=== PATIENT | male | born 2000 | race Caucasian/White ===

== ENCOUNTER 2020-09-18 13:31 | Emergency (ER) | payer OTHER, SELFPAY ==
[2020-09-18 13:44] VITALS: BP 125/76; PULSE 90; RESP 16; TEMP 37.1; O2SAT 97; BMI 25.8
--- NOTE | 2020-09-18 14:22 | ED.WOUNDLAC ---
HPI - Wound/Laceration General Chief Complaint: Wound/Laceration Stated Complaint: leg lac Time Seen by Provider: 09/18/20 13:49 Source: patient Mode of arrival: ambulatory Limitations: no limitations History of Present Illness HPI narrative: 20 yo healthy male presenting with left upper thigh laceration he sustained while playing ice hockey just prior to arrival. He thinks someone's skate cut through his pads and clothes, causing a laceration. He said there was a lot of bleeding initially but with direct pressure he was able to control it. He is able to walk without issue. He denies other injury. Tetanus UTD. Related Data Allergies Allergy/AdvReac Type Severity Reaction Status Date / Time No Known Allergies Allergy Verified 09/18/20 13:44 Review of Systems Review of Systems: Constitutional: No Fever, No Chills Cardiovascular: No Chest Pain, No SOB Respiratory: No Cough, No Sputum, No Wheezing, No dyspnea Gastrointestinal: No Nausea, No Vomiting, No Diarrhea, No abdominal Pain Musculoskeletal: No joint pain, + Myalgias Skin: + Skin Lesions, No rash Neuro: No Weakness, No Numbness Heme/Lymph: No Bruising, No Lymphadenopathy PMFSH Past Medical History Medical History No known health problems Social History Social History Smoked in Last 30 Days: No Use of substances other than those prescribed or required for medical reasons: No Advance Directives: No Advance Directives Information Provided: No Physical Exam Vital Signs: Vital Signs: Last Vital Signs Temp 98.8 F 09/18/20 13:44 Pulse 90 09/18/20 13:44 Resp 16 09/18/20 13:44 BP 125/76 09/18/20 13:44 Pulse Ox 97 09/18/20 13:44 Body Mass Index 25.8 Appearance: Alert. Oriented X3. No acute distress. HEENT: normal inspection Respiratory: No respiratory distress. Skin: Skin warm and dry. Normal skin color. Normal skin turgor. No rashes. Extremities: left thigh with superficial lacerations - one is <1cm, one is ~1 cm and the 3rd is 4.5 cm long. parallel wounds consistent with the width of an ice stake. No surrounding erythema, edema, ecchymosis. Neuro: Oriented X 3. No motor deficit. No sensory deficit. Normal gait. Course Course Course Narrative: 20 y/o male presenting with superficial lacerations to left thigh due to ice skate trauma - wound reviewed with Dr. Hoover - planning for Dermabond and ster-strips. Reevaluation(s) Reevaluation #1: Wounds cleaned and irriagated extensively. Dermabond was used to re-approximate the lacerations with good effect. Once dried additional support with steri-strips. Wound were well approximated and patient tolerated well. No need for antibiotics. Stable for discharge. Procedures Procedure Narrative Procedure Narrative: Dermabond applied to superfiical lacerations to left thigh with good effect. Steri strips applied for reinforcement with good effect as well. Critical Care Time Critical Care Time Critical Care Time: No Discharge Plan Discharge Clinical Impression: Laceration Patient Disposition: Home, Self-Care Instructions: Laceration (ED), Skin Adhesive Care (ED) Additional Instructions: Keep wound clean and dry for hte next 24 hours. After that you can briefly wash and then pat dry. Allow the steri strips and skin glue to fall off on their own, do not peel them off. Use ice to the area several times per day. Take Motrin and / or Tylenol as needed for pain. Follow up with your doctor as needed.
== END 2020-09-18 15:15 | disposition home or self-care (01) ==
PROVIDERS: Emergency Provider Internal Medicine
DX: S71.112A Laceration without foreign body, left thigh, initial encounter (principal); W26.8XXA Contact with other sharp object(s), not elsewhere classified, initial encounter; Y93.22 Activity, ice hockey; Y92.330 Ice skating rink (indoor) (outdoor) as the place of occurrence of the external cause; Y99.8 Other external cause status
CPT/HCPCS: 12002; 99283

== ENCOUNTER 2020-09-29 14:42 | Emergency (ER) | payer OTHER, SELFPAY ==
[2020-09-29 15:10] VITALS: BP 133/88; PULSE 79; RESP 14; TEMP 36.6; O2SAT 99; BMI 25.8
[2020-09-29] MEDS: Lidocaine HCl 1 % MPF 5 ML VIAL SUBCUT (16:52)
--- NOTE | 2020-09-29 17:17 | ED_ITS ---
HPI - Wound/Laceration General Chief Complaint: Wound/Laceration Stated Complaint: LIP LACERATION Time Seen by Provider: 09/29/20 16:34 Source: patient Mode of arrival: ambulatory Limitations: no limitations History of Present Illness HPI narrative: 20-year-old male presenting to the ED with complaints of a laceration to the left side of his lip while playing hockey. Reports a new player hit him with the puck. He reports that he did not have face shield or cage on. He denies loss of consciousness or any other symptoms complaints or concerns at this time. Reports he is up-to-date on tetanus. Patient tetanus UTD: Yes Context: accidental Associated symptoms: pain Related Data Previous Rx's Medication Instructions Recorded amoxicillin-pot clavulanate 1 tab PO BID 10 Days #20 tab 09/29/20 [Augmentin] Allergies Allergy/AdvReac Type Severity Reaction Status Date / Time No Known Allergies Allergy Verified 09/18/20 13:44 Review of Systems Review of Systems: Constitutional : No Fever, No Chills, Cardiovascular : No Chest Pain, No SOB Respiratory : No Dyspnea Gastrointestinal : No abdominal pain Musculoskeletal : No Joint Swelling Skin : positive skin laceration, No Foreign bodies, No rash, No surrounding erythema Neuro : No Weakness, No Numbness/tingling Psych : No SI/HI/thoughts of self injury Yes all other systems are reviewed and are negative [facility] Past Medical History Attestation statement: The following information was validated with the patient. Medical History No known health problems Social History Social History Advance Directives: No Advance Directives Information Provided: No Physical Exam Vital Signs: Vital Signs: Last Vital Signs Temp 98 F 09/29/20 15:10 Pulse 79 09/29/20 15:10 Resp 14 09/29/20 15:10 BP 133/88 09/29/20 15:10 Pulse Ox 99 09/29/20 15:10 Body Mass Index 25.8 vital signs have been reviewed as normal and appeared to be correct. Blood pressure normal. Heart rate normal. Respiration rate normal. Temperature normal. Oxygen saturation normal. Appearance: Alert. Oriented X3. No acute distress. Head: Normal external exam. Normocephalic. Atraumatic. Eyes: PERRLA. EOMI. Conjunctiva and sclera normal. Eyelids normal. ENT: To left side of upper lip there is a 2 cm intermediate laceration passing through the vermilion border. No foreign bodies noted. Bleeding is controlled. No trauma to dentition. Pharynx normal. Uvula midline. Moist mucous membranes. No trismus noted. No drooling noted. No muffled voice noted. Neck: Normal inspection. Neck supple. FROM. No adenopathy. No meningeal signs. CVS: Normal heart rate and rhythm. Respiratory: No respiratory distress. Painless inspiration. Back: Full range of motion noted. Skin: Skin warm and dry. Normal skin color. Normal skin turgor. No rashes/lesions/lacerations noted. Extremities: NExtremities exhibit normal range of motion. Neuro: Oriented X 3. No motor deficit. No sensory deficit. Reflexes normal. Course Course Course Narrative: 20-year-old male presenting to the ED after he sustained a lip laceration while playing hockey. No loss of consciousness. No other injuries. Up-to-date on tetanus. Patient now status post laceration repair with 6 n onabsorbable sutures placed. Will DC home with symptomatic treatment instructions return in 5 days for suture removal. Patient understands agrees the plan. Procedures Laceration Laceration 1: Site: lip Side (If applicable): left Size (cm): 2 Description: other (Upside-down Y-shaped) Depth: simple, single layer Local Anesthetic: lidocaine 1% Amount of anesthesia used (mL): 5 Pre-repair: wound explored, irrigated extensively and deep structures intact Skin layer closed with: other (Prolene) Size (cm): 6-0 Number of sutures: 6 Technique: simple, interrupted MDM - Wound/Laceration Medical Records Attestation: I reviewed the patient's medical records. Discharge Plan Discharge Clinical Impression: Laceration Patient Disposition: Home, Self-Care Instructions: Facial Laceration (ED) Prescriptions: New amoxicillin-pot clavulanate [Augmentin] 875-125 mg tablet 1 tab PO BID 10 Days Qty: 20 RF: 0 Referrals: Lucina Acuna PA [Emergency Midlevel Provider] - 5 days (For suture removal 6 sutures to be removed) Stand Alone Forms: Work/School Release Print Language: Nepalese
== END 2020-09-29 17:36 | disposition home or self-care (01) ==
PROVIDERS: Emergency Provider Emergency Medicine
DX: S01.511A Laceration without foreign body of lip, initial encounter (principal); W21.220A Struck by ice hockey puck, initial encounter; Y93.22 Activity, ice hockey; Y92.330 Ice skating rink (indoor) (outdoor) as the place of occurrence of the external cause; Y99.8 Other external cause status
CPT/HCPCS: 12014; 99283; 99284

== ENCOUNTER 2020-10-04 09:28 | Emergency (ER) | payer OTHER, SELFPAY ==
[2020-10-04 09:29] VITALS: BP 128/86; PULSE 88; RESP 16; TEMP 36.7; O2SAT 98; BMI 27.3
--- NOTE | 2020-10-04 09:49 | ED.RECABL ---
HPI - Recheck/Abnormal Lab/Rx General Chief Complaint: Skin/Abscess/Foreign Body Stated Complaint: SUTURE REMOVAL Time Seen by Provider: 10/04/20 09:49 Source: patient and old records reviewed Mode of arrival: ambulatory Limitations: no limitations History of Present Illness complaint: suture/staple removal Initial visit (ago): day(s) (5) Initial visit for: laceration Returns today for: staple/stitch removal Symptoms since prior visit: no new symptoms Context: planned re-check Associated symptoms: none Related Data Previous Rx's Medication Instructions Recorded amoxicillin-pot clavulanate 1 tab PO BID 10 Days #20 tab 09/29/20 [Augmentin] Allergies Allergy/AdvReac Type Severity Reaction Status Date / Time No Known Allergies Allergy Verified 09/18/20 13:44 Review of Systems Review of Systems: Constitutional : No Fever, No Chills, Cardiovascular : No Chest Pain, No SOB Respiratory : No Dyspnea Gastrointestinal : No abdominal pain Musculoskeletal : No Joint Swelling Skin : No rash, no skin laceration PMFSH Past Medical History Attestation statement: The following information was validated with the patient. Medical History No known health problems Social History Social History Advance Directives: No Advance Directives Information Provided: No Physical Exam Vital Signs: Vital Signs: Last Vital Signs Temp 98.0 F 10/04/20 09:29 Pulse 88 10/04/20 09:29 Resp 16 10/04/20 09:29 BP 128/86 10/04/20 09:29 Pulse Ox 98 10/04/20 09:29 Body Mass Index 27.3 Appearance: Alert. Oriented X3. No acute distress. Eyes: Pupils equal, round and reactive to light. ENT: Pharynx normal. L upper lip well healed sutures [address] no signs of infectino Neck: Normal inspection. Neck supple. CVS: Normal heart rate and rhythm. Respiratory: No respiratory distress. Abdomen: Soft and nontender. Skin: Skin warm and dry. Normal skin color. Normal skin turgor. Procedures Procedure Narrative Procedure Narrative: verbal consent, wound healing well no signs of infection removed 6 sutures without issue, no complications MDM - Recheck/Abnormal Lab/Rx MDM Narrative Medical decision making narrative: uncomplicated suture removal - no signs of infection, no complaints Discharge Plan Discharge Clinical Impression: Encounter for removal of sutures Patient Disposition: Home, Self-Care Instructions: Stitches Removal (ED) Additional Instructions: return to ED for any worsening symptoms or concerns Prescriptions: No Action amoxicillin-pot clavulanate [Augmentin] 875-125 mg tablet 1 tab PO BID 10 Days Qty: 20 RF: 0
== END 2020-10-04 09:53 | disposition home or self-care (01) ==
PROVIDERS: Emergency Provider Emergency Medicine
DX: S01.511D Laceration without foreign body of lip, subsequent encounter (principal); X58.XXXD Exposure to other specified factors, subsequent encounter; Z48.02 Encounter for removal of sutures
CPT/HCPCS: 99283